=== PATIENT | female | born 1995 | race Caucasian/White ===

== ENCOUNTER 2017-04-06 16:37 | Emergency (ER) | payer BC ==
[~2017-04-06] VITALS: Ht 162.6 cm; Wt 56.8 kg
[~2017-04-06 16:37] MED LIST: NORCO 325 MG-51 TAB PO; TRI-SPRINTEC 281 TAB PO
[2017-04-06 16:40] VITALS: BP 137/74; TEMP 98.2
[2017-04-06] MEDS ORDERED: PREDNISONE20 MG PO ×2 (17:01→18:45)
[2017-04-06] MEDS ORDERED: TROKEND100 (17:02)
[2017-04-06] MEDS ORDERED: SINEQUAN 1010 MG/CAP PO (17:03)
[2017-04-06] MEDS ORDERED: ALAVERT10 M1 PO (17:15)
[2017-04-06 18:55] VITALS: PULSE 93
== END 2017-04-06 18:55 | disposition home or self-care (01) ==
LOC: COL.ER 16:37
DX: L50.1 Idiopathic urticaria (principal)
CPT/HCPCS: J7512

== ENCOUNTER → 2018-04-06 | Outpatient (CLI) | payer BC ==
[~2018-04-06] MED LIST changes: +ALAVERT10 M1 PO; +PREDNISONE20 MG PO; +SINEQUAN 1010 MG/CAP PO; +TROKEND100
== END ==
LOC: COL.RAD 07:21
DX: E04.1 Nontoxic single thyroid nodule (principal); R93.8 Abnormal findings on diagnostic imaging of other specified body structures

== ENCOUNTER 2019-06-12 20:19 | Emergency (ER) | payer OTHER ==
[~2019-06-12] VITALS: Ht 162.6 cm; Wt 52.3 kg
[2019-06-12 20:26] VITALS: BP 132/70; TEMP 98.5
[2019-06-12] MEDS ORDERED: ZOLOFT 50MG50 MG PO (20:39)
[2019-06-12] MEDS ORDERED: ALDACTONE 25MG25 M1 PO (20:40)
[2019-06-12] MEDS ORDERED: FLEXERIL 1010 MG/TAB PO (22:15)
[2019-06-12 22:21] VITALS: PULSE 81
== END 2019-06-12 22:22 | disposition home or self-care (01) ==
LOC: COL.ER 20:19
DX: S16.1XXA Strain of muscle, fascia and tendon at neck level, initial encounter (principal); S39.012A Strain of muscle, fascia and tendon of lower back, initial encounter; F41.9 Anxiety disorder, unspecified; V43.52XA Car driver injured in collision with other type car in traffic accident, initial encounter